=== PATIENT | male | born 1995 | race African-American/Black ===

== ENCOUNTER 2016-10-17 19:24 | Emergency (ER) | payer MEDICAID ==
[~2016-10-17] VITALS: Ht 180.3 cm; Wt 172.4 kg
[2016-10-17] MEDS ORDERED: ONDANSETRON ODT 4 MG TAB.RAPDIS SL ONE (20:30)
[2016-10-17] MEDS ORDERED: HYDROCODONE/APAP 10-325 MG TABLET PO ONE (20:30)
[2016-10-17] MEDS ORDERED: ONDANSETRON ODT 4 MG TAB.RAPDIS ONE (21:12)
[2016-10-17] MEDS ORDERED: HYDROCODONE/APAP 10-325 MG TABLET ONE (21:12)
--- NOTE | 2016-10-17 22:20 | NUR ---
Patient discharged to home in stable conditon. Written and verbal after care instructions given. Patient verbalizes understanding of instructions. WALKED OUT OF ER WITH STEADY GAIT
[2016-10-17 22:24] VITALS: BP 155/88
== END 2016-10-17 22:24 | disposition home or self-care (01) ==
LOC: ER 19:32
DX: S16.1XXA Strain of muscle, fascia and tendon at neck level, initial encounter (principal); M54.5 Low back pain; M25.562 Pain in left knee; M25.561 Pain in right knee; E66.01 Morbid (severe) obesity due to excess calories; V49.9XXA Car occupant (driver) (passenger) injured in unspecified traffic accident, initial encounter; Y93.89 Activity, other specified; Y99.8 Other external cause status; Y92.89 Other specified places as the place of occurrence of the external cause
CPT/HCPCS: 72110; 72125; 73000; A4663; Q0162